=== PATIENT | female | born 1960 | race African-American/Black ===

== ENCOUNTER 2018-08-30 00:23 | Emergency (ER) | payer SELFPAY ==
[~2018-08-30] VITALS: Ht 160 cm; Wt 108.9 kg
[2018-08-30] MEDS ORDERED: LISI40TA PO (00:57)
[2018-08-30] MEDS ORDERED: HYDR-2758 PO (00:57)
[2018-08-30] MEDS ORDERED: PENI500T PO (00:57)
--- NOTE | 2018-08-30 01:00 | PHYS DOC ---
Adult General Chief Complaint Chief Complaint Dental pain HPI HPI Procedures old female presented to the emergency department with multiple dental cavities and dental pain on the right side Review of Systems Review of Systems Constitutional: Denies fever or chills [] Eyes: Denies change in visual acuity, redness, or eye pain [] HENT: Denies nasal congestion or sore throat [] Respiratory: Denies cough or shortness of breath [] Cardiovascular: No additional information not addressed in HPI [] GI: Denies abdominal pain, nausea, vomiting, bloody stools or diarrhea [] : Denies dysuria or hematuria [] Musculoskeletal: Denies back pain or joint pain [] Integument: Denies rash or skin lesions [] Neurologic: Denies headache, focal weakness or sensory changes [] Endocrine: Denies polyuria or polydipsia [] All other systems were reviewed and found to be within normal limits, except as documented in this note. Current Medications Current Medications Current Medications Medications (Trade) Dose Ordered Sig/Jeannine Start Time Stop Time Status Last Admin Dose Admin Acetaminophen/ Hydrocodone Bitart (Lortab 5/325) 2 tab 1X ONCE 08/30/18 01:00 08/30/18 01:01 UNV Lisinopril (Prinivil) 40 mg 1X ONCE 08/30/18 01:00 08/30/18 01:01 UNV Physical Exam Physical Exam Constitutional: Well developed, well nourished, no acute distress, non-toxic appearance. [] HENT: Normocephalic, atraumatic, bilateral external ears normal, oropharynx moist, no oral exudates, nose normal. []Multiple dental cavities Eyes: PERRLA, EOMI, conjunctiva normal, no discharge. [] Neck: Normal range of motion, no tenderness, supple, no stridor. [] Cardiovascular:Heart rate regular rhythm, no murmur [] Lungs & Thorax: Bilateral breath sounds clear to auscultation [] Abdomen: Bowel sounds normal, soft, no tenderness, no masses, no pulsatile masses. [] Skin: Warm, dry, no erythema, no rash. [] Back: No tenderness, no CVA tenderness. [] Extremities: No tenderness, no cyanosis, no clubbing, ROM intact, no edema. [] Neurologic: Alert and oriented X 3, normal motor function, normal sensory function, no focal deficits noted. [] Psychologic: Affect normal, judgement normal, mood normal. [] EKG EKG [] Radiology/Procedures Radiology/Procedures [] Course & Med Decision Making Course & Med Decision Making Pertinent Labs and Imaging studies reviewed. (See chart for details) [] Final Impression Final Impression [] Problems: (1) Dental cavities (2) Hypertension Qualifiers: Qualified Codes: I10 - Essential (primary) hypertension Dragon Disclaimer Dragon Disclaimer This electronic medical record was generated, in whole or in part, using a voice recognition dictation system. DAHIANA DANIEL MD Aug 30, 2018 01:00
[2018-08-30] MEDS ORDERED: HYDROcodone/APAP 5/325MG 1 TAB TABLET PO ONE (01:30)
[2018-08-30] MEDS ORDERED: LISINOPRIL 10 MG TABLET PO ONE (01:30)
[2018-08-30 01:47] VITALS: BP 194/103
== END 2018-08-30 01:52 | disposition home or self-care (01) ==
LOC: ER 00:23
DX: K02.9 Dental caries, unspecified (principal); I10 Essential (primary) hypertension
CPT/HCPCS: 99283

== ENCOUNTER 2020-04-27 12:31 | Observation (INO) | payer SELFPAY ==
[~2020-04-27] VITALS: Ht 162.6 cm; Wt 130.5 kg
[~2020-04-27 12:31] MED LIST: HYDR-2155 PO; LISI40TA PO; PENI500T PO
[2020-04-27] MEDS ORDERED: hydrALAZINE 20 MG/ML VIAL. IV ONE ×3 (13:00→16:45)
--- NOTE | 2020-04-27 13:14 | PHYS DOC ---
Past History Past Medical History: Hypertension Past Surgical History: No Surgical History Smoking: Non-smoker Alcohol Use: None Drug Use: None General Adult EDM: Chief Complaint: HYPERTENSION HPI: HPI: Patient is a 59 year old female who presents for evaluation of 2 complaints. First of all she has left knee pain and has a history of bursitis. Patient urgently went to an urgent care to have this condition evaluated. However they noticed that she had an elevated blood pressure so they sent her to the hospital. Presenting blood pressure was 185/108. Patient states that she has been intermittently taking her lisinopril medication. Although she took her dose of lisinopril 40 mg today. Patient complains of some mild blurred vision but no chest pain or shortness of air. Patient is otherwise benign-appearing and has no deficits. Regarding her knee back in March she had taken some steroids orally which did benefit her knee. Patient is worried that she may have had a new injury from bending and turning in the past 24 hours. There is no pop and no visible signs of injury. Patient is able to bear weight Review of Systems: Review of Systems: Constitutional: Denies fever or chills Eyes: mild change in visual acuity HENT: Denies nasal congestion or sore throat Respiratory: Denies cough or shortness of breath Cardiovascular: Denies chest pain or edema GI: Denies abdominal pain, nausea, vomiting, bloody stools or diarrhea : Denies dysuria Musculoskeletal: Denies back pain has left knee joint pain Integument: Denies rash Neurologic: Denies headache, focal weakness or sensory changes Endocrine: Denies polyuria or polydipsia Lymphatic: Denies swollen glands Psychiatric: Denies depression or anxiety Heart Score: Risk Factors: Risk Factors: DM, Current or recent (<one month) smoker, HTN, HLP, family history of CAD, obesity. Risk Scores: Score 0 - 3: 2.5% MACE over next 6 weeks - Discharge Home Score 4 - 6: 20.3% MACE over next 6 weeks - Admit for Clinical Observation Score 7 - 10: 72.7% MACE over next 6 weeks - Early Invasive Strategies Current Medications: Current Meds: Current Medications Medications (Trade) Dose Ordered Sig/Jeannine Start Time Stop Time Status Last Admin Dose Admin Hydralazine HCl (Apresoline) 10 mg 1X ONCE 04/27/20 13:00 04/27/20 13:01 DC 04/27/20 13:05 10 MG Allergies: Allergies: Allergies Coded Allergies Type Severity Reaction Last Updated Verified No Known Drug Allergies 08/30/18 No Physical Exam: PE: Constitutional: Well developed, well nourished, mild acute distress, non-toxic appearance. [] HENT: Normocephalic, atraumatic, bilateral external ears normal, oropharynx moist, no oral exudates, nose normal. [] Eyes: PERRL, EOMI, conjunctiva normal, no discharge. [] Neck: Normal range of motion, no tenderness, supple, no stridor. [] Cardiovascular: Tachy heart rate regular rhythm, no murmur [] Lungs & Thorax: Bilateral breath sounds clear to auscultation [] Abdomen: Bowel sounds normal, soft, no tenderness, no masses, no pulsatile masses. [] Skin: Warm, dry, no erythema, no rash. [] Back: no tenderness, no CVA tenderness. [] Extremities: mild left knee tenderness, no cyanosis, no clubbing, ROM intact, no edema. [] Neurologic: Alert and oriented X 3, normal motor function, normal sensory function, no focal deficits noted. [] Psychologic: Affect normal, judgement normal, mood normal. [] Current Patient Data: Labs: Laboratory Tests Test 04/27/20 13:06 White Blood Count 7.5 x10^3/uL Red Blood Count 3.78 x10^6/uL Hemoglobin 12.5 g/dL Hematocrit 37.3 % Mean Corpuscular Volume 99 fL Mean Corpuscular Hemoglobin 33 pg Mean Corpuscular Hemoglobin Concent 34 g/dL Red Cell Distribution Width 14.3 % Platelet Count 276 x10^3/uL Neutrophils (%) (Auto) 57 % Lymphocytes (%) (Auto) 30 % Monocytes (%) (Auto) 10 % Eosinophils (%) (Auto) 3 % Basophils (%) (Auto) 0 % Neutrophils # (Auto) 4.3 x10^3uL Lymphocytes # (Auto) 2.3 x10^3/uL Monocytes # (Auto) 0.7 x10^3/uL Eosinophils # (Auto) 0.2 x10^3/uL Basophils # (Auto) 0.0 x10^3/uL Sodium Level 139 mmol/L Potassium Level 3.4 mmol/L Chloride Level 102 mmol/L Carbon Dioxide Level 28 mmol/L Anion Gap 9 Blood Urea Nitrogen 11 mg/dL Creatinine 0.8 mg/dL Estimated GFR (Cockcroft-Gault) 88.8 BUN/Creatinine Ratio 14 Glucose Level 131 mg/dL Calcium Level 9.4 mg/dL Total Bilirubin 0.4 mg/dL Aspartate Amino Transf (AST/SGOT) 17 U/L Alanine Aminotransferase (ALT/SGPT) 28 U/L Alkaline Phosphatase 143 U/L Total Protein 7.2 g/dL Albumin 3.7 g/dL Albumin/Globulin Ratio 1.1 Current Medications Medications (Trade) Dose Ordered Sig/Jeannine Route PRN Reason Start Time Stop Time Status Last Admin Dose Admin Hydralazine HCl (Apresoline) 10 mg 1X ONCE IV 04/27/20 13:00 04/27/20 13:01 DC 04/27/20 13:05 Vital Signs: Vital Signs Date Time Temp Pulse Resp B/P (MAP) Pulse Ox O2 Delivery O2 Flow Rate FiO2 04/27/20 13:05 115 185/108 04/27/20 12:31 98.7 20 99 Room Air Laboratory Tests Test 04/27/20 13:06 04/27/20 13:46 White Blood Count 7.5 x10^3/uL Red Blood Count 3.78 x10^6/uL Hemoglobin 12.5 g/dL Hematocrit 37.3 % Mean Corpuscular Volume 99 fL Mean Corpuscular Hemoglobin 33 pg Mean Corpuscular Hemoglobin Concent 34 g/dL Red Cell Distribution Width 14.3 % Platelet Count 276 x10^3/uL Neutrophils (%) (Auto) 57 % Lymphocytes (%) (Auto) 30 % Monocytes (%) (Auto) 10 % Eosinophils (%) (Auto) 3 % Basophils (%) (Auto) 0 % Neutrophils # (Auto) 4.3 x10^3uL Lymphocytes # (Auto) 2.3 x10^3/uL Monocytes # (Auto) 0.7 x10^3/uL Eosinophils # (Auto) 0.2 x10^3/uL Basophils # (Auto) 0.0 x10^3/uL Sodium Level 139 mmol/L Potassium Level 3.4 mmol/L Chloride Level 102 mmol/L Carbon Dioxide Level 28 mmol/L Anion Gap 9 Blood Urea Nitrogen 11 mg/dL Creatinine 0.8 mg/dL Estimated GFR (Cockcroft-Gault) 88.8 BUN/Creatinine Ratio 14 Glucose Level 131 mg/dL Calcium Level 9.4 mg/dL Total Bilirubin 0.4 mg/dL Aspartate Amino Transf (AST/SGOT) 17 U/L Alanine Aminotransferase (ALT/SGPT) 28 U/L Alkaline Phosphatase 143 U/L Total Protein 7.2 g/dL Albumin 3.7 g/dL Albumin/Globulin Ratio 1.1 Troponin I Quantitative < 0.017 ng/mL Current Medications Medications (Trade) Dose Ordered Sig/Jeannine Route PRN Reason Start Time Stop Time Status Last Admin Dose Admin Hydralazine HCl (Apresoline) 10 mg 1X ONCE IV 04/27/20 13:00 04/27/20 13:01 DC 04/27/20 13:05 Hydralazine HCl (Apresoline) 10 mg 1X ONCE IV 04/27/20 14:00 04/27/20 14:01 DC 04/27/20 13:49 Iohexol (Omnipaque 350 Mg/ml) 100 ml 1X ONCE IV 04/27/20 15:45 04/27/20 15:46 UNV EKG: EKG: EKG showed sinus tachycardia rate 104, some artifact present, otherwise unrema rkable EKG, not STEMI read at 1309 [] Radiology/Procedures: Radiology/Procedures: [place] [address] IMAGING REPORT Signed PATIENT: MARIEL MARSHALL ACCOUNT: [id number] : 1960 LOCATION: ER AGE: 59 SEX: F EXAM STATUS: REG ER ORD. PHYSICIAN: ANSELMO WASHBURN DO REASON: pain, swelling, possible injury vs bursitis PROCEDURE: KNEE LEFT 3V Examination: KNEE LEFT 3V History: Reason: pain, swelling, possible injury vs bursitis / Spl. Instructions: / History: Comparison/Correlation: None Findings: Total 3 images of the left knee were obtained. Small joint effusion is present. Spurring at the inferior aspect of the patella noted. No fracture or bone destruction. Joint spaces are probably adequate although evaluation may be limited due to positioning. Impression: Knee joint effusion. Electronically signed by: Dewayne Masterson MD (04/27/2020 1:27 PM) [id number] DICTATED AND SIGNED BY: DEWAYNE MASTERSON MD DATE: 04/27/20 1327 CC: PCPELSA; ANSELMO WASHBURN DO ~ [] Impressions: [place] [id number] IMAGING REPORT Signed PATIENT: MARIEL MARSHALL ACCOUNT: [id number] : 1960 LOCATION: ER AGE: 59 SEX: F EXAM STATUS: REG ER ORD. PHYSICIAN: ANSELMO WASHBURN DO REASON: short of air, tachycardia PROCEDURE: CT ANGIOGRAPHY CHEST CTA Chest with contrast: Clinical History: Reason: short of air, tachycardia / Spl. Instructions: / History: Shortness of breath. Axial helical images of the chest were obtained after the administration of 100 cc of IV Isovue-370 and timed appropriately for a pulmonary arterial study. Conventional axial reconstruction was performed in addition to coronal, sagittal and bilateral oblique MIP (maximum intensity projection). This study was ordered to detect possible pulmonary embolism. There are no filling defects to suggest pulmonary embolism. A few groundglass opacities of lungs is likely discoid atelectasis. There is no mediastinal or hilar lymphadenopathy. The ascending thoracic aorta measures 3.8 cm in diameter. Impression: 1. No evidence of pulmonary embolism. 2. Mildly dilated ascending thoracic aorta. No acute findings. End impression PQRS Compliance Statement: One or more of the following individualized dose reduction techniques were utilized for this examination: 1. Automated exposure control 2. Adjustment of the mA and/or kV according to patient size 3. Use of iterative reconstruction technique Electronically signed by: Jennie Dias III, MD (04/27/2020 4:20 PM) [id number] DICTATED AND SIGNED BY: JENNIE DIAS III, MD DATE: 04/27/20 1620 CC: PCPELSA; ANSELMO WASHBURN DO ~ Course & Med Decision Making: Course & Med Decision Making Pertinent Labs and Imaging studies reviewed. (See chart for details) [] Dragon Disclaimer: Dragon Disclaimer: This electronic medical record was generated, in whole or in part, using a voice recognition dictation system. 1345 hydralazine dose will be repeated since blood pressure went up to 206/117. Knee x-ray show an effusion but no fracture. Blood work was stable and essentially unremarkable 1406 blood pressure now 179/95. Patient feeling better at this time. Prescription for medrol dose pack given for her knee. Patient will resume taking her home lisinopril 40 mg daily. Will also add hydrochlorothiazide 25 mg p.o. daily. She was advised that she needs close follow-up regarding her [id number] blood pressure. Patient has no focal deficits or lateralizing signs. She demonstrated a steady gait and is ready for discharge. 1455 current blood pressure 178/85, patient states she started to have some palpitations and her heart rate increased to 128. There are no focal deficits or lateralizing signs. Cardiac labs and thyroid labs added 1630 patient blood pressure back up to 216/109. Heart rate still 127. CT angios chest is unremarkable. Dr. Dave was called and accepted pt for admission. Will admit to telemetry bed here for observation. Third dose of IV hydralazine given Departure Departure: Impression: Primary Impression: Uncontrolled hypertension Additional Impressions: Tachycardia Effusion, left knee Disposition: ADMITTED INPATIENT (Dr. Dave to telemetry bed) Admitting Physician: Bonnie Dave Condition: STABLE Referrals: PCP,NO (PCP) Justification of Admission: Justification of Admission: Justification of Admission Dx: Yes Comments: Uncontrolled hypertension/hypertensive urgency Critical Care Time Critical care time was 30 minutes exclusive of procedures. This included time talking to the physician, the patient and considering dangerous diagnoses. Patient had to be given 3 separate doses of IV hydralazine to lower her blood pressure ANSELMO WASHBURN DO Apr 27, 2020 13:14
--- NOTE | 2020-04-27 13:20 | EKG ---
[address] [address] Test Date: 2020-04-27 Test Time: 12:59:25 Pat Name: MARIEL MARSHALL Department: Room: Gender: F Towel Weaver: : 1960 Requested By: ANSELMO WASHBURN Order Number: [id number] Reading MD: Measurements Intervals [place] Rate: 104 P: 3 OK: 158 QRS: 18 QRSD: 86 T: 15 QT: 332 QTc: 437 Interpretive Statements SINUS TACHYCARDIA LEFT ATRIAL ABNORMALITY ABNORMAL ECG RI6.02 No previous ECG available for comparison
[2020-04-27 13:25] LABS: BASO % 0 % (0-3); EOS # 0.2 x10^3/uL (0.0-0.7); EOS % 3 % (0-3); HEMATOCRIT 37.3 % (36.0-47.0); HEMOGLOBIN 12.5 g/dL (12.0-15.5); LYMPH # 2.3 x10^3/uL (1.0-4.8); LYMPH % 30 % (24-48); MEAN CORPUSCULAR HEMOGLOBIN 33 pg (25-35); MEAN CORPUSCULAR HGB CONC 34 g/dL (31-37); MEAN CORPUSCULAR VOLUME 99 fL (79-100); MONO # 0.7 x10^3/uL (0.0-1.1); MONO % 10 % (0-9); NEUT # 4.3 x10^3uL (1.8-7.7); NEUT % 57 % (31-73); PLATELET COUNT 276 x10^3/uL (140-400); RED BLOOD COUNT 3.78 x10^6/uL (3.50-5.40); RED CELL DISTRIBUTION WIDTH 14.3 % (11.5-14.5); WHITE BLOOD COUNT 7.5 x10^3/uL (4.0-11.0)
--- NOTE | 2020-04-27 13:30 | RAD ---
Examination: KNEE LEFT 3V History: Reason: pain, swelling, possible injury vs bursitis / Spl. Instructions: / History: Comparison/Correlation: None Findings: Total 3 images of the left knee were obtained. Small joint effusion is present. Spurring at the inferior aspect of the patella noted. No fracture or bone destruction. Joint spaces are probably adequate although evaluation may be limited due to positioning. Impression: Knee joint effusion. Electronically signed by: Dewayne Siegel MD (04/27/2020 1:27 PM) [id number]
[2020-04-27 13:31] LABS: CALCIUM 9.4 mg/dL (8.5-10.1); CREATININE 0.8 mg/dL (0.6-1.0); GFR 88.8; POTASSIUM 3.4 mmol/L (3.5-5.1)
[2020-04-27 13:39] LABS: ALBUMIN 3.7 g/dL (3.4-5.0); ALBUMIN/GLOBULIN RATIO 1.1 (1.0-1.7); TOTAL BILIRUBIN 0.4 mg/dL (0.2-1.0); TOTAL PROTEIN 7.2 g/dL (6.4-8.2)
[2020-04-27] MEDS ORDERED: CONTRAST GIVEN MC PRN (15:45)
[2020-04-27] MEDS ORDERED: IOHEXOL 350 MG/ML 100 ML VIAL. IV ONE (15:45)
--- NOTE | 2020-04-27 16:23 | RAD ---
CTA Chest with contrast: Clinical History: Reason: short of air, tachycardia / Spl. Instructions: / History: Shortness of breath. Axial helical images of the chest were obtained after the administration of 100 cc of IV Isovue-370 and timed appropriately for a pulmonary arterial study. Conventional axial reconstruction was performed in addition to coronal, sagittal and bilateral oblique MIP (maximum intensity projection). This study was ordered to detect possible pulmonary embolism. There are no filling defects to suggest pulmonary embolism. A few groundglass opacities of lungs is likely discoid atelectasis. There is no mediastinal or hilar lymphadenopathy. The ascending thoracic aorta measures 3.8 cm in diameter. Impression: 1. No evidence of pulmonary embolism. 2. Mildly dilated ascending thoracic aorta. No acute findings. End impression PQRS Compliance Statement: One or more of the following individualized dose reduction techniques were utilized for this examination: 1. Automated exposure control 2. Adjustment of the mA and/or kV according to patient size 3. Use of iterative reconstruction technique Electronically signed by: Zafar Ahn III, MD (04/27/2020 4:20 PM) [id number]
[2020-04-27] MEDS ORDERED: ONDANSETRON PF 4 MG/2 ML VIAL. IVP PRN (17:00)
[2020-04-27 18:29] LABS: BACTERIA,URINE 0 /HPF (0-FEW); BILIRUBIN,URINE NEG (NEG); CLARITY,URINE CLEAR; COLOR,URINE YELLOW; GLUCOSE,URINE NEG (NEG); NITRITE,URINE NEG (NEG); RBC,URINE OCC /HPF (0-2); SQUAMOUS EPITHELIAL CELL,UR MOD /LPF; UROBILINOGEN,URINE 0.2 mg/dL (0.2 mg/dL)
[2020-04-27 18:31] LABS: YEAST,URINE PRESENT /HPF
[2020-04-27] MEDS ORDERED: ONDANSETRON PF 4 MG/2 ML VIAL. IVP ONE (18:45)
[2020-04-27 20:24] VITALS: BP 182/115
--- NOTE | 2020-04-27 20:24 | NUR ---
The patient, MARIEL MARSHALL, 59 y/o, F admitted by YAAKOV SMITH MD, was given written information regarding hospital policies, unit procedures and contact persons. Valuables were checked and logged. Call light at bedside. Will continue to monitor.
[2020-04-27] MEDS: HYDROcodone/APAP 5/325MG 1 TAB TABLET PO PRN (21:00)
[2020-04-27] MEDS: LABETALOL HCL 200 MG TABLET PO SCH (21:00)
[2020-04-28 01:37] VITALS: BP 123/72
--- NOTE | 2020-04-28 02:18 | NUR ---
Pt states "I do not have insurance, and I cannot afford my medications."
[2020-04-28] MEDS: LABETALOL HCL 200 MG TABLET PO SCH (05:26)
[2020-04-28] MEDS: HYDROcodone/APAP 5/325MG 1 TAB TABLET PO PRN (05:26)
[2020-04-28 05:58] VITALS: BP 172/75
[2020-04-28] MEDS ORDERED: POTASSIUM CHLORIDE 20 MEQ TABLET.ER. PO ONE (08:00)
[2020-04-28 10:52] VITALS: BP 155/74
[2020-04-28 12:51] LABS: FREE T4 0.92 ng/dL (0.76-1.46); THYROID STIM HORMONE (TSH) 1.2 uIU/mL (0.358-3.740)
[2020-04-28] MEDS ORDERED: LISI40TA PO (14:24)
[2020-04-28] MEDS ORDERED: ATEN50TA PO (14:24)
--- NOTE | 2020-04-28 14:54 | HP ---
ADMIT DATE: 04/27/2020 HISTORY OF PRESENT ILLNESS: The patient is a 59-year-old -Bur[place] female patient who was referred to the Emergency Room from an urgent care for evaluation of 2 complaints. First of all, she has left knee pain and has a history of bursitis. The patient urgently went to an urgent care to have this condition evaluated; however, they noted that she has an elevated blood pressure, so they sent her to the hospital, presenting blood pressure was 185/108. She stated that she has been intermittently taking her lisinopril medication. In fact, she said she ran out. She was on 40 mg daily and she has not taking it for almost 2 months now. She did complain of mild blurring of vision, but no chest pain or shortness of breath. She was benign appearing and has no deficit regarding her knee. Back in March, she had taken some steroids orally, which did not benefit her knee. The patient is worried that she may have had a new injury from bending and turning in the past 24 hours. There are no visible signs of injury. She is able to bear weight without difficulty. She was evaluated in the Emergency Room. Her lab works were basically unremarkable except for mild hypokalemia. Her urinalysis was essentially benign apart from mild proteinuria and her knee x-ray showed that the patient has total 3 images of the left knee were obtained, a small joint effusion is present, spurring at the inferior aspect of the patella noted, no fracture or bone destruction, joint spaces are probably adequate; although, evaluation was limited due to positioning. CT angio of the chest showed no evidence of pulmonary embolism. She has mildly dilated ascending thoracic aorta, no acute finding. The patient was admitted to control her blood pressure. She was given hydralazine IV without much improvement. We did start her on labetalol 200 mg twice a day together with hydrocodone and was admitted to monitored bed. PAST MEDICAL HISTORY: Significant for hypertension, osteoarthritis, and allergic rhinitis. PAST SURGICAL HISTORY: Unremarkable. ALLERGIES: SHE IS ALLERGIC TO PENICILLIN. MEDICATIONS: She is on lisinopril 40 mg once a day. She has been also taking ibuprofen up to 800 mg twice a day for extended periods of time for her left knee pain. FAMILY HISTORY: She has a half-brother who at the age of 47 because of myocardial infarction. Her biological father is still alive at the age of 75 and seemingly healthy. Her mother at age of 65 because of stomach cancer. SOCIAL HISTORY: She is , has 1 son and 1 daughter. She has never smoked, does not drink alcohol or use recreational drugs. He is a bible teacher. REVIEW OF SYSTEMS: The patient denies any blurring of vision, cataract, glaucoma or macular degeneration. Denied any earache, tinnitus or sensorineural deafness. Denied any nosebleeds, stuffy nose or postnasal drip. Denied any sore throat, sore tongue, toothache, hoarseness of voice or difficulty swallowing. Denied any nausea, vomiting, diarrhea or constipation. Denied any hematemesis, melena or hematochezia. Denied any dysuria, frequency or hematuria. Denied any chest pain, shortness of breath, orthopnea, paroxysmal nocturnal dyspnea. Denied any cough, phlegm or hemoptysis. PHYSICAL EXAMINATION: GENERAL: On arrival to the Emergency Room, she looked well and was clearly in no apparent respiratory distress. No pallor, jaundice or cyanosis. No lymphadenopathy, no thyromegaly. No jugular venous distention. No lower limb edema. VITAL SIGNS: Her heart rate was 124, blood pressure was 185/87, her temperature was 98.5, respiratory rate was 18, and oxygen saturation 100% on room air. HEAD, EYES, EARS, NOSE AND THROAT: Showed normocephalic, atraumatic. NECK: Supple. HEART: Normal first and second heart sounds. No gallop or murmur. CHEST: Clear to auscultation. No crepitation or rhonchi. ABDOMEN: Distended, soft, nontender. NEUROLOGIC: She is awake, alert, responding appropriately. All cranial nerves are intact. EXTREMITIES: She moves extremities without difficulty. She ambulates without assistance or assistive devices. LABORATORY DATA: Her lab work showed a white cell count 7500, hemoglobin 12.5, hematocrit 37, MCV 99 and platelet count of 276,000. Her serum sodium was 139, potassium 3.4, chloride 102, bicarbonate 28, anion gap of 9, BUN 11, creatinine 0.8, estimated GFR was 88 mL per minute, her glucose 131, calcium was 9.4. Total bilirubin, AST, ALT, alkaline phosphatase were normal. Total protein was 7.2, albumin was 3.7. Her TSH and free T4 are both normal. Urinalysis essentially unremarkable. Her EKG showed that she was in sinus tachycardia with heart rate of [address]-T changes. Her left knee x-ray showed that she has small joint effusion is present, spurring at the inferior aspect of the patella noted, no fracture or bone destruction, joint spaces are probably adequate; although, evaluation is limited due to positioning. She did have CT angio of the chest, which showed there are no filling defects suggestive of pulmonary embolism, a few ground glass opacities in the lung dewitt, likely discoid atelectasis. There is no mediastinal or hilar lymphadenopathy. The ascending thoracic aorta measures 3.8 cm in diameter. The patient was admitted to adjust her medication to control the blood pressure. YAAKOV SMITH MD DR: RENITA/jose maria JOB#: [id number] / [id number]
--- NOTE | 2020-04-28 16:46 | DS ---
DATE OF DISCHARGE: 04/28/2020 HOSPITAL COURSE: The patient is a 59-year-old -[place] female patient who was admitted as a referral from urgent care, where she was originally evaluated for left knee pain. There, she was noted to have elevated blood pressure and; therefore, she was brought to the Emergency Room where she was extensively evaluated. She was started initially on IV hydralazine and we switched her to labetalol 200 mg twice a day and her blood pressure is much improved, but not optimally so. Apparently, the patient was on lisinopril 40 mg once a day and has not had her medication since she left from [place]. PHYSICAL EXAMINATION: GENERAL: When I saw her today, she looked much improved, was resting slightly propped up in bed, in no apparent distress. No pallor, jaundice or cyanosis. No lymphadenopathy, no thyromegaly. No jugular venous distention. No limb edema. VITAL SIGNS: Her heart rate was 96, blood pressure 155/74, temperature was 98.5, respiratory rate 20, and oxygen saturation was 96%. The rest of clinical exam is stable, has not really changed. Her hemoglobin was 12.5, hematocrit 37 with normal white cell count and platelets. Her chemistry also was unremarkable except for mild hypokalemia. Her TSH and free T4 were normal. The patient was discharged home to continue on atenolol 50 mg once a day and lisinopril 40 mg once a day. She was advised to attend [facility] for assistance with her medication. She was given a prescription for lisinopril 40 mg once a day and atenolol 50 mg once a day. They were chosen from the 4 dollar list of Ju, I actually gave her 90-day supply with 3 refills and advised her to attend the [facility] for further evaluation and treatment. She was also advised to use maybe Tylenol for her left knee pain and avoid nonsteroidal inflammatory medication which can cause pseudotolerance with her antihypertensive medication. YAAKOV SMITH MD DR: RENITA/jose maria JOB#: [id number] / [id number]
--- NOTE | 2020-04-28 17:16 | NUR ---
Pt discharged home for self care. Pt iv discontinued, pressure dressing applied, no complications. Pt given written and oral discharge, follow up and medication instructions. Pt left unit in stable condition via wheelchair.
== END 2020-04-28 15:00 | disposition home or self-care (01) ==
LOC: EDBD 12:31 → ER 12:31 → 1 SOUTH 16:43
PROVIDERS: ADMIT Internal Medicine; ATTEND Internal Medicine
DX: I10 Essential (primary) hypertension (principal); M19.90 Unspecified osteoarthritis, unspecified site; Z79.899 Other long term (current) drug therapy; M25.462 Effusion, left knee
CPT/HCPCS: 36415; 71275; 73562; 80053; 81001; 84439; 84443; 84484; 85025; 93005; 96374; 96375; 96376; 99291; G0378; J0360; J2405; Q9967; G0379